=== PATIENT | male | born 1955 | race Two or more races ===

== ENCOUNTER 2016-10-12 08:57 | Day surgery (SDC) | payer BC ==
--- NOTE | 2016-09-29 15:32 | GHP ---
[f rep st] HISTORY AND PHYSICAL HISTORY OF PRESENT ILLNESS: This is for upcoming surgery date of admission of 10/12/2016. The patie nt comes to our office for the first time referred by his primary care provider, Dr. Lange, whom he s aw for followup after he went to the emergency room in [place] on 09/03/2016. He had severe abdomi nal pain and vomiting. He had similar 2 attacks in the last few months, but this attack was much wor se according to him. He thinks it is related to fatty and greasy meals. He had a CT scan which was grossly negative as well as an ultrasound which demonstrated cholelithiasis on 09/11/2016. These wer e done through the [facility] and can be reviewed on [employer]. PAST MEDICAL HISTORY: Renal stones, hypertension. PAST SURGICAL HISTORY: Appendectomy, back surgery. ALLERGIES: No known drug allergies. MEDICATIONS: Hypertension medicine and a cholesterol medicine for which he does not remember the [facility]. SOCIAL HISTORY: The patient is retired from the [employer], , nonsmoker. REVIEW OF SYSTEMS: He had a negative 10-point review of systems. PHYSICAL EXAM: GENERAL: The patient is a pleasant man in no apparent distress. HEAD AND NECK: Nor mocephalic, atraumatic. Nonicteric. CHEST: CTA bilaterally. HEART: Regular rhythm and rate. ABD OMEN: Right lower quadrant scar, soft, nontender. Negative Gracia sign. EXTREMITIES: No lower ext remity edema. Normal dorsalis pedis pulses to palpation. RADIOLOGY: Ultrasound demonstrates gallbladder sludge and likely stones, negative CT scan of the abd omen. LABORATORY STUDIES: Normal liver function test on 09/03/2016. Normal complete blood count or CBC. IMPRESSION: Cholelithiasis. RECOMMENDATION: Laparoscopic cholecystectomy was discussed with the patient in detail including risk of common bile duct injury, infection, nerve injury, hematoma, liver injury. The patient elects to proceed with scheduling surgery for 10/12/2016. /[id number]/MODL
[~2016-10-12 08:57] MED LIST: BUPIVACAINE 0.5% 30 ML SDV ONE; HEPARIN 1000 UNIT/1 ML MDV ONE; ceFAZolin 1 GM/5 ML SYR ONE; cefOXitin SODIUM 2 GM in D5W 100 ML IV ONE
[2016-10-12] MEDS ORDERED: LR 1,000 ML IV ONE (10:26)
[2016-10-12 10:59] LABS: ALBUMIN 4.4 g/dL (3.5-5.0); BILIRUBIN,TOTAL 0.9 mg/dL (0.1-1.4); BILIRUBIN-CONJUGATED 0.4 mg/dL (0.0-0.5); BILIRUBIN-UNCONJUGATED 0.5 mg/dL (0.0-1.1); TOTAL PROTEIN 7.3 g/dL (6.3-8.2)
[2016-10-12] MEDS ORDERED: fentaNYL 100 MCG/2 ML INJ ONE ×2 (12:29→13:35)
[2016-10-12] MEDS ORDERED: PROPOFOL 200 MG/20 ML VIAL ONE (12:29)
[2016-10-12] MEDS ORDERED: LIDOCAINE 2% 5 ML SDV ONE (12:29)
[2016-10-12] MEDS ORDERED: DEXAMETHASONE 4 MG/ML VIAL ONE ×2 (12:29)
[2016-10-12] MEDS ORDERED: ROCURONIUM 50 MG/5 ML VIAL ONE (12:30)
[2016-10-12] MEDS ORDERED: GLYCOPYRROLATE 0.2 MG/1 ML VIAL ONE (12:32)
[2016-10-12] MEDS ORDERED: MIDAZOLAM 2 MG/2 ML VIAL ONE (12:33)
[2016-10-12] MEDS ORDERED: ONDANSETRON 4 MG/2 ML VIAL ONE (13:17)
[2016-10-12] MEDS ORDERED: KETOROLAC 30 MG/1 ML SDV ONE (13:42)
[2016-10-12] MEDS ORDERED: HYDROCODONE/APAP 5/325 TAB ONE (15:22)
--- NOTE | 2016-10-15 19:58 | GOP ---
[f rep st] OPERATIVE REPORT DATE OF OPERATION: 10/12/2016 SURGEON: Flaquito Martines MD LIVESTOCK JUDGING COACH: Vargas Doss PA-C ANESTHESIOLOGIST: Gael Castellano MD PREOPERATIVE DIAGNOSIS: 1. Symptomatic cholelithiasis. 2. Cholecystitis. POSTOPERATIVE DIAGNOSIS: 1. Symptomatic cholelithiasis. 2. Cholecystitis. PROCEDURE PERFORMED: Laparoscopic cholecystectomy. FINDINGS: The patient was found to have a distended, thickened gallbladder with some adhesions to th e gallbladder, and tiny crystals for stones, small ducts. DESCRIPTION OF PROCEDURE: The patient was taken to the operating room where he received satisfactory general endotracheal anesthesia. He was placed in the supine position, prepped and draped in usual sterile fashion. A periumbilical incision was made. The Veress needle inserted. Pneumoperitoneum w as established. A trocar was introduced. Laparoscope introduced. Good visualization was obtained. Three other trocars were placed in the upper abdomen under direct vision. The gallbladder was eleva danica up. Adhesions were taken down. The cystic triangle was carefully exposed. The cystic duct, the cystic artery were was dissected free, and good clear view was obtained. They were both multiply he mo clipped and divided with care taken to avoid injury to the common duct. Peritoneum of the gallbl adder was incised. The gallbladder was dissected free from the bed in the hepatic fossa and extracte d through the upper midline port site. Hemostasis was assured. The wound was irrigated. Trocars we re removed under direct vision. Trocar sites were closed with 0 Vicryl for the fascia, 4-0 Vicryl purdy bcuticular stitch for the skin. All layers infiltrated with 0.5% Marcaine. Blood loss was negligibl e. He tolerated the procedure well, was taken to the recovery room in good condition. /[id number]/MODL
== END 2016-10-12 15:40 | disposition home or self-care (01) ==
LOC: FSGY 08:57
PROVIDERS: ATTEND Surgery
PROC: 0FT44ZZ Resection of Gallbladder, Percutaneous Endoscopic Approach (ICD-10-PCS; principal; 2016-10-12 10:45)
DX: K80.40 Calculus of bile duct with cholecystitis, unspecified, without obstruction (principal); I10 Essential (primary) hypertension
CPT/HCPCS: J0694; J1100; J1885; J2250; J2405; J2704; J3010

== ENCOUNTER → 2018-10-21 | Outpatient (CLI) | payer BC, OTHER | LOC: CIMAGING 10:19 | PROVIDERS: ATTEND Family Medicine | DX: D69.6 Thrombocytopenia, unspecified (principal); R73.01 Impaired fasting glucose; R20.0 Anesthesia of skin; M79.601 Pain in right arm | CPT/HCPCS: 72050-PO ==